=== PATIENT | female | born 1970 | race Caucasian/White ===

== ENCOUNTER 2017-01-27 01:21 | Emergency (ER) | payer OTHER ==
[~2017-01-27] VITALS: Ht 175.3 cm; Wt 108.9 kg
--- NOTE | ~2017-01-27 | EKG ---
[place] [id number] [facility] [place] [address] ELECTROCARDIOGRAM REPORT Name: DOMINGUEZ DIEHL LAYO [facility] #: [id number] Admission: 01/27/17 Attend Phys: Discharge: 01/27/17 Date of : 68 Report #: [id number] THIS REPORT FOR: //name// [facility] ED Test Date: 2017-01-27 Test Time: 01:27:16 Pat Name: DOMINGUEZ DIEHL Department: Room: Gender: F [employer]ist Steroids: MZOOK : 1970 Requested By: Alexa Rodgers Order Number: [id number] MD: Zackary Giles Measurements Intervals [place] Rate: 81 P: 23 GA: 162 QRS: 37 QRSD: 106 T: 74 QT: 404 QTc: 469 Interpretive Statements Sinus rhythm No significant abnormality Compared to ECG 07/29/2016 06:51:17 No significant change was found Electronically Signed On 01-28-2017 18:11:36 CDT by Zackary Giles [email or web address] <ELECTRONICALLY SIGNED> By: Zackary Giles MD, [facility] 01/28/17 1811 0127 [id number] Zackary Giles MD, FACC /EPI
[~2017-01-27 01:21] MED LIST: AMLODIPINE BESY10 MG PO; AMOXICILLIN875 MG PO; ASPIR 8181 MG PO; DESCOVY 200-251 EACH PO; HYDROCODON-ACE1 EAC7 PO; JANUVIA100 MG PO; LANTUS100 UNIT/M SUBQ; LEVEMIR SUBQ; MIRALAX17 GM PO; NORCO 5-325 TA1 EACH PO; NYSTATIN 1100000 U/M SW&SWALLOW; PREZCOBIX 8001 EACH PO; SINGULAIR 10 MG10 M1 PO; TRINATE TABLET1 TAB PO; VALTREX 500 MG500 MG PO
[2017-01-27] MEDS ORDERED: NORVASC5 MG PO (01:49)
[2017-01-27] MEDS ORDERED: LISINOPRIL10 MG PO (01:49)
[2017-01-27] MEDS ORDERED: OMEGA-31000 M1 PO (01:49)
[2017-01-27 02:21] LABS: ABSOLUTE NEUTROPHILS 3.5 thou/uL (1.4-8.2); BASOPHILS 0.6 % (0.0-2.0); EOSINOPHILS 1.5 % (0.0-3.0); HEMATOCRIT 42.9 % (37.0-47.0); HEMOGLOBIN 14.9 gm/dL (12.0-15.0); LYMPHOCYTES 33.2 % (24.0-44.0); MCH 30.1 pg (26.0-34.0); MCHC 34.8 g/dL (28.0-37.0); MCV 86.6 fL (80.0-100.0); MONOCYTES 7.4 % (1.0-8.0); PLATELET COUNT 271 thou/uL (150-400); POLYS 57.3 % (36.0-66.0); RBC 4.95 mil/uL (4.20-5.00); RDW 14.6 % (10.5-14.5); WBC 6.1 thou/uL (4.0-11.0)
[2017-01-27 02:22] LABS: MANUAL DIFF NO
[2017-01-27 02:25] LABS: ANION GAP 5 mmol/L (7-16); BUN 9 mg/dL (7-18); CALCIUM 9.7 mg/dL (8.5-10.1); CHLORIDE 103 mmol/L (98-107); CO2 32 mmol/L (21-32); GLUCOSE 373 mg/dL (74-106); POTASSIUM 4.4 mmol/L (3.5-5.1); SODIUM 140 mmol/L (136-145)
[2017-01-27 02:33] LABS: TROPONIN-I < 0.04 ng/mL (<0.04-0.07)
[2017-01-27] MEDS ORDERED: MOBIC15 MG PO (03:29)
== END 2017-01-27 03:31 | disposition home or self-care (01) ==
LOC: ER 01:21
PROVIDERS: Emergency Medicine
DX: M94.0 Chondrocostal junction syndrome [Tietze] (principal); F17.210 Nicotine dependence, cigarettes, uncomplicated; E11.9 Type 2 diabetes mellitus without complications; Z98.890 Other specified postprocedural states; Z88.5 Allergy status to narcotic agent; Z88.8 Allergy status to other drugs, medicaments and biological substances